=== PATIENT | female | born 1955 | race Caucasian/White ===

== ENCOUNTER → 2016-11-24 | Outpatient (REF) | payer OTHER ==
[~2016-11-24] MED LIST: AMBI5TAB; COUM7.5T PO; EFFE37.527; PERC10TA9 PO; REME30TA PO; SANC20TA PO
== END ==
LOC: M LAB REF 13:14
PROVIDERS: ATTEND Internal Medicine Medical Oncology
DX: C50.919 Malignant neoplasm of unspecified site of unspecified female breast (principal)

== ENCOUNTER → 2016-11-24 | Outpatient (REF) | payer OTHER | LOC: M LAB REF 12:57 | PROVIDERS: ATTEND Nurse Practitioner Family | DX: L60.3 Nail dystrophy (principal) ==

== ENCOUNTER → 2016-12-10 | Outpatient (CLI) | payer OTHER ==
--- NOTE | 2016-12-10 12:15 | REPMRS ---
Patient History The patient states she had a clinical breast exam in November 2016.Patient is postmenopausal and has history of breast cancer at age 51. Family history of breast cancer in mother at age 70. Digital Mammo Screening Bilat: December 10, 2016 - Exam #: [id number] Bilateral CC and MLO view(s) were taken. Technologist: Jade Chairez, Technologist Prior study comparison: December 10, 2015, bilateral digital mammo screening bilat performed at [facility]. December 04, 2014, bilateral digital mammo screening bilat performed at [facility]. FINDINGS: The breast tissue is heterogeneously dense. This may lower the sensitivity of mammography. There has been no change in the appearance of the mammogram from the prior studies. There is a moderate amount of residual fibroglandular tissue which is fairly symmetric. There is no interval development of dominant mass, areas of architectural distortion, or clustered microcalcification typical of malignancy. ASSESSMENT: BI-RADS/ACR category 1 mammogram. Negative. Recommendation Routine screening mammogram in 1 year (for women over age 40). This mammogram was interpreted with the aid of an FDA-approved computer-aided dectection system. Electronically Signed By: Dirk Gould MD 12/10/16 [id number]
== END ==
LOC: M RAD 10:00
PROVIDERS: ATTEND Internal Medicine Medical Oncology
DX: Z12.31 Encounter for screening mammogram for malignant neoplasm of breast (principal)